=== PATIENT | female | born 1995 | race African-American/Black ===

== ENCOUNTER 2017-10-23 21:48 | Emergency (ER) | payer SELFPAY ==
[~2017-10-23] VITALS: Ht 165.1 cm; Wt 45.4 kg
--- NOTE | 2017-10-23 22:06 | Emergency Room Report ---
History of Present Illness General Chief Complaint: Allergic Reaction Source: Friend Present Illness HPI Patient presents with complaints of allergic reaction Patient reports that she ate something around 6:00 and has realized that there was a in the food and she is allergic to eggs Patient began having itching diffusely Did not take any medications at home Patient was apparently in a taxi and paramedics were summoned Patient reports that she feels better at this time however very groggy She was given 50 mg IM of Benadryl prior to arrival Denies any shortness of breath Denies any difficulty swallowing Allergies: Uncoded Allergies: EGGS (Allergy, Unknown, 10/23/17) Patient History Past Medical History: see triage record Pertinent Family History: none Last Menstrual Period: unk Reviewed Nursing Documentation: PMH: Agreed; PSxH: Agreed Nursing Documentation-PMH Past Medical History: No Stated History Review of Systems All Other Systems: negative except mentioned in HPI Physical Exam Vital Signs Date Time Temp Pulse Resp B/P (MAP) Pulse Ox O2 Delivery O2 Flow Rate FiO2 10/23/17 21:41 98.0 78 16 140/78 96 Room Air 98.1 Sp02 EP Interpretation: reviewed, normal General Appearance: other - Appears weak Head: normocephalic, atraumatic Eyes: bilateral eye PERRL, bilateral eye EOMI ENT: hearing grossly normal, normal pharynx, TMs + canals normal, uvula midline Neck: full range of motion, supple, no meningismus, no bony tend Respiratory: lungs clear, normal breath sounds, no rhonchi, no respiratory distress, no retraction, no accessory muscle use Cardiovascular #1: normal peripheral pulses, regular rate, rhythm, no edema, no gallop, no JVD, no murmur Gastrointestinal: normal bowel sounds, non tender, soft, no mass, no organomegaly, non-distended, no guarding, no hernia, no pulsatile mass, no rebound Genitourinary: no CVA tenderness Musculoskeletal: normal inspection Neurologic: oriented x3, responsive, business supervisor III-XII nml as tested, motor strength/ tone normal, sensory intact Psychiatric: mood/affect normal Skin: other - Urticaria upper extremities bilaterally Lymphatic: normal inspection, no adenopathy Procedures Critical Care Time Critical Care Time 50 minutes for multiple re-evaluations Critical presentation Concern for airway pathology not including any procedural time Medical Decision Making Diagnostic Impression: Primary Impression: Allergic reaction ER Course Upon initial arrival patient seems somewhat lethargic However was given 50 mg IM of Benadryl On further discussion with friends At around 7:00 patient did not eat the egg however even smelling it intervention on her tongue had causes severe reaction that felt that her tongue had been mildly swollen and she felt like she was having a reaction There were taking a right service home and her symptoms appeared to be worsened The friend also gives a description of possible syncopal episode Here the patient is treated emergently Given the information from friend also subcutaneous epinephrine was provided Patient is complex requiring further inpatient care given the significant reaction Patient also had several episodes of vomiting At the time of admission however patient reports that she would like to go home and is refusing any further care I was attempting to provide some medications for home including steroids However the patient left prior to being able to have these medications prescribed Labs Test 10/23/17 22:50 10/24/17 00:10 White Blood Count 7.4 K/UL (4.8-10.8) Red Blood Count 5.01 M/UL (4.20-5.40) Hemoglobin 14.7 G/DL (12.0-16.0) Hematocrit 43.8 % (37.0-47.0) Mean Corpuscular Volume 87 FL (80-99) Mean Corpuscular Hemoglobin 29.4 PG (27.0-31.0) Mean Corpuscular Hemoglobin Concent 33.6 G/DL (32.0-36.0) Red Cell Distribution Width 11.4 % (11.6-14.8) Platelet Count 223 K/UL (150-450) Mean Platelet Volume 6.6 FL (6.5-10.1) Neutrophils (%) (Auto) 71.7 % (45.0-75.0) Lymphocytes (%) (Auto) 24.5 % (20.0-45.0) Monocytes (%) (Auto) 3.0 % (1.0-10.0) Eosinophils (%) (Auto) 0.4 % (0.0-3.0) Basophils (%) (Auto) 0.5 % (0.0-2.0) Sodium Level 141 MMOL/L (136-145) Potassium Level 2.8 MMOL/L (3.5-5.1) Chloride Level 105 MMOL/L (98-107) Carbon Dioxide Level 26 MMOL/L (21-32) Anion Gap 9 mmol/L (5-15) Blood Urea Nitrogen 11 mg/dL (7-18) Creatinine 0.9 MG/DL (0.55-1.30) Estimat Glomerular Filtration Rate > 60 mL/min (>60) Glucose Level 146 MG/DL (74-106) Calcium Level 9.3 MG/DL (8.5-10.1) Urine HCG, Qualitative Negative (NEGATIVE) Urine Opiates Screen Negative (NEGATIVE) Urine Barbiturates Screen Negative (NEGATIVE) Phencyclidine (PCP) Screen Negative (NEGATIVE) Urine Amphetamines Screen Negative (NEGATIVE) Urine Benzodiazepines Screen Negative (NEGATIVE) Urine Cocaine Screen Negative (NEGATIVE) Urine Marijuana (THC) Screen Positive (NEGATIVE) Rhythm Strip Diag. Results EP Interpretation: yes Rate: 76 Rhythm: NSR, no PVC's, no ectopy Last Vital Signs Date Time Temp Pulse Resp B/P (MAP) Pulse Ox O2 Delivery O2 Flow Rate FiO2 10/23/17 21:41 98.0 78 16 140/78 96 Room Air 98.1 Status: improved Disposition: AGAINST MEDICAL ADVICE Condition: Serious AyanrochelleFabiana MANRIQUE Oct 23, 2017 22:06
[2017-10-23] MEDS ORDERED: Solu-MEDROL 125mg Inj IVP ONE (22:15)
[2017-10-23] MEDS ORDERED: Metoclopramide 10mg/2ml Inj IVP ONE (23:00)
[2017-10-23] MEDS ORDERED: LORazepam Inj 2mg/ml 1ml IV ONE (23:00)
[2017-10-23 23:13] LABS: BASOPHILS % (AUTO) 0.5 % (0.0-2.0); EOSINOPHILS % (AUTO) 0.4 % (0.0-3.0); HEMATOCRIT 43.8 % (37.0-47.0); HEMOGLOBIN 14.7 G/DL (12.0-16.0); LYMPHOCYTES % (AUTO) 24.5 % (20.0-45.0); MEAN CORPUSCULAR VOLUME 87 FL (80-99); NEUTROPHILS % (AUTO) 71.7 % (45.0-75.0); PLATELET COUNT 223 K/UL (150-450); RED BLOOD COUNT 5.01 M/UL (4.20-5.40); RED CELL DISTRIBUTION WIDTH 11.4 % (11.6-14.8); WHITE BLOOD COUNT 7.4 K/UL (4.8-10.8)
[2017-10-23 23:14] LABS: ANION GAP 9 mmol/L (5-15); BLOOD UREA NITROGEN 11 mg/dL (7-18); CALCIUM 9.3 MG/DL (8.5-10.1); CARBON DIOXIDE 26 MMOL/L (21-32); CHLORIDE 105 MMOL/L (98-107); CREATININE 0.9 MG/DL (0.55-1.30); POTASSIUM 2.8 MMOL/L (3.5-5.1); SODIUM 141 MMOL/L (136-145)
[2017-10-24] MEDS ORDERED: EPINEPHrine 1mg/1ml Amp SUBQ ONE (00:15)
[2017-10-24 02:00] VITALS: BP 132/72
--- NOTE | 2017-10-24 16:17 | Cardiology Report ---
APPROVED REPORT EKG Measurement Heart Ooly80INPH VT 146P-18 [id number] Normal sinus rhythm with sinus arrhythmia Inferior infarct, age undetermined Abnormal ECG
== END 2017-10-24 02:00 | disposition home or self-care (01) ==
LOC: EDBD 21:48 → EMR 22:05
DX: T78.40XA Allergy, unspecified, initial encounter (principal); X58.XXXA Exposure to other specified factors, initial encounter; Z91.012 Allergy to eggs
CPT/HCPCS: 36415; 80048; 80307; 81025; 85025; 93005; 96361; 96372; 96374; 96375; 99291; J0171; J2765; J2930; S0028